=== PATIENT | male | born 1995 | race Caucasian/White ===

== ENCOUNTER 2016-09-15 19:23 | Emergency (ER) | payer OTHER ==
[~2016-09-15] VITALS: Ht 180.3 cm; Wt 113.4 kg
[~2016-09-15 19:23] MED LIST: CEPHALEXIN500 M1 PO; CLARITIN10 MG PO; CYCLOBENZAPRINE10 MG PO; IMODIUM A-D2 M2 PO; MEDROL DOSEPAK4 MG PO; MOTRIN800 MG PO; NAPROSYN500 MG PO; ZOFRAN ODT4 MG SL
[2016-09-15 19:31] VITALS: BP 160/90
[2016-09-15 19:56] LABS: BASO % 0.3 % (0.0-1.0); EOS # 0.3 10*3/uL (0.0-0.4); EOS % 2.8 % (1.0-4.0); HEMATOCRIT 42.6 % (42.0-52.0); HEMOGLOBIN 15.1 g/dl (14.0-18.0); LYMPH # 2.5 10*3/uL (1.3-4.4); MEAN CELL VOLUME 79.3 fl (80.0-94.0); MEAN CORPUSCULAR HGB 28.1 pg (27.0-31.0); MEAN CORPUSCULAR HGB CONC 35.4 g/dl (33.0-37.0); MEAN PLATELET VOLUME 8.7 fl (9.6-12.3); MONO # 0.9 10*3/uL (0.1-1.0); MONO % 9.8 % (3.0-9.0); NEUT # 5.6 10*3/uL (2.3-7.9); NEUT % 59.9 % (47.0-73.0); PLATELET COUNT AUTOMATED 305 10*3/uL (130-400); RED BLOOD COUNT 5.37 10*6/uL (4.50-5.90); RED CELL DISTRI WIDTH 12.7 % (0-14.5); WHITE BLOOD COUNT 9.3 10*3/uL (4.8-10.8)
[2016-09-15 20:12] LABS: ALBUMIN 3.9 gm/dl (3.1-4.5); ALKALINE PHOSPHATASE 105 U/L (45-117); BILIRUBIN, TOTAL 0.4 mg/dl (0.2-1.0); BUN 13 mg/dl (7-24); CARBON DIOXIDE 23 mmol/L (21-32); CHLORIDE 108 mmol/L (98-107); EST GLOM FILT AFRICAN AMERICAN > 60 ml/min; GLUCOSE 109 mg/dL (65-99); POTASSIUM 3.9 mmol/L (3.5-5.1); SGOT/AST 20 IU/L (3-35); SGPT/ALT 33 U/L (12-78); SODIUM 143 mmol/L (136-145); TOTAL PROTEIN 7.6 gm/dL (6.4-8.2)
== END 2016-09-15 20:46 | disposition home or self-care (01) ==
LOC: ED 19:23
PROVIDERS: Physician Assistant
DX: G89.29 Other chronic pain (principal); M54.5 Low back pain; R51 Headache; Z88.8 Allergy status to other drugs, medicaments and biological substances

== ENCOUNTER 2016-11-27 17:18 | Emergency (ER) | payer OTHER ==
[~2016-11-27] VITALS: Ht 182.8 cm; Wt 113.4 kg
[2016-11-27 17:39] VITALS: BP 135/79
[2016-11-27] MEDS ORDERED: Bactrim DS PO (18:00)
[2016-11-27] MEDS ORDERED: KEFLEX500 M1 PO (18:00)
== END 2016-11-27 18:03 | disposition home or self-care (01) ==
LOC: ED 17:18
DX: L03.115 Cellulitis of right lower limb (principal); Z96.643 Presence of artificial hip joint, bilateral; Z88.8 Allergy status to other drugs, medicaments and biological substances

== ENCOUNTER 2016-12-03 19:37 | Inpatient (IN) | payer OTHER ==
[~2016-12-03] VITALS: Ht 182.8 cm; Wt 109.8 kg
[~2016-12-03 19:37] MED LIST changes: +Bactrim DS PO; +KEFLEX500 M1 PO
[2016-12-03 19:58] VITALS: BP 130/76
[2016-12-03] MEDS ORDERED: DOXYCYCLINE100 M3 PO (20:00)
[2016-12-03 20:37] LABS: BASO % 0.5 % (0.0-1.0); EOS # 0.2 10*3/uL (0.0-0.4); EOS % 2.7 % (1.0-4.0); HEMOGLOBIN 13.9 g/dl (14.0-18.0); LYMPH # 2.4 10*3/uL (1.3-4.4); LYMPH % 28.2 % (27.0-41.0); MEAN CELL VOLUME 82.3 fl (80.0-94.0); MEAN CORPUSCULAR HGB 27.9 pg (27.0-31.0); MEAN CORPUSCULAR HGB CONC 33.9 g/dl (33.0-37.0); MEAN PLATELET VOLUME 8.6 fl (9.6-12.3); MONO # 0.6 10*3/uL (0.1-1.0); MONO % 7.4 % (3.0-9.0); NEUT # 5.2 10*3/uL (2.3-7.9); NEUT % 60.8 % (47.0-73.0); PLATELET COUNT AUTOMATED 308 10*3/uL (130-400); RED BLOOD COUNT 4.98 10*6/uL (4.50-5.90); RED CELL DISTRI WIDTH 12.7 % (0-14.5); WHITE BLOOD COUNT 8.6 10*3/uL (4.8-10.8)
[2016-12-03 20:53] LABS: ALBUMIN 3.8 gm/dl (3.1-4.5); ALKALINE PHOSPHATASE 99 U/L (45-117); BUN 12 mg/dl (7-24); CHLORIDE 107 mmol/L (98-107); CREATININE 0.88 mg/dL (0.70-1.30); POTASSIUM 3.9 mmol/L (3.5-5.1); SGOT/AST 16 IU/L (3-35); SGPT/ALT 30 U/L (12-78); SODIUM 138 mmol/L (136-145); TOTAL PROTEIN 7.7 gm/dL (6.4-8.2)
[2016-12-03 21:45] VITALS: BP 134/77; BP 137/77
--- NOTE | 2016-12-03 21:45 | NUR ---
A 21, admitted to 4E, under the services of YVES Zhao DO with a diagnosis of CELLULITIS, FAILED OUTPT TRT. Chief complaint is RASH. Patient arrived via BED from ER. Initial assessment completed. Vital signs taken and recorded. YVES ZHAO DO notified of admission to the unit. Orders received. See assessment for past medical history, medications and allergies. Patient and/or family oriented to unit. visitation policy reviewed. Clothing/patient valuable form completed. CLIFF ENRIQUEZ
--- NOTE | 2016-12-03 22:00 | NUR ---
MED REC UP TO DATE PER PATIENT
[2016-12-04] VITALS: BP 124/59
--- NOTE | 2016-12-04 02:00 | NUR ---
SLEEPING. RESP EASY AND NONLABORED ON ROOM AIR. NO DISTRESS NOTED. CALL LIGHT IN REACH. WILL CONTINUE TO MONITOR.
[2016-12-04 06:59] LABS: BASO % 0.3 % (0.0-1.0); EOS # 0.2 10*3/uL (0.0-0.4); EOS % 3.3 % (1.0-4.0); HEMATOCRIT 39.3 % (42.0-52.0); HEMOGLOBIN 13.2 g/dl (14.0-18.0); LYMPH # 1.8 10*3/uL (1.3-4.4); LYMPH % 31.4 % (27.0-41.0); MEAN CELL VOLUME 82.7 fl (80.0-94.0); MEAN CORPUSCULAR HGB 27.8 pg (27.0-31.0); MEAN CORPUSCULAR HGB CONC 33.6 g/dl (33.0-37.0); MONO # 0.7 10*3/uL (0.1-1.0); MONO % 11.7 % (3.0-9.0); NEUT # 3.1 10*3/uL (2.3-7.9); NEUT % 52.8 % (47.0-73.0); PLATELET COUNT AUTOMATED 272 10*3/uL (130-400); RED BLOOD COUNT 4.75 10*6/uL (4.50-5.90); RED CELL DISTRI WIDTH 12.7 % (0-14.5); WHITE BLOOD COUNT 5.8 10*3/uL (4.8-10.8)
--- NOTE | 2016-12-04 07:11 | NUR ---
DR MALIK'S ANSWERING SERVICE MADE AWARE OF NEW CONSULT.
[2016-12-04 07:25] LABS: BUN 14 mg/dl (7-24); CHLORIDE 109 mmol/L (98-107); CHOLESTEROL 140 mg/dL (<200); CREATININE 0.74 mg/dL (0.70-1.30); POTASSIUM 4.3 mmol/L (3.5-5.1); SODIUM 141 mmol/L (136-145); TRIGLYCERIDES 83 mg/dl (<150); VLDL CHOLESTEROL 17 mg/dL (6-40)
[2016-12-04 07:33] LABS: HDL CHOLESTEROL 28 mg/dl (40-60); LDL CHOLESTEROL 95 mg/dL (9-159)
--- NOTE | 2016-12-04 07:33 | NUR ---
24 HR chart check completed.
[2016-12-04 08:00] VITALS: BP 128/66
[2016-12-04 12:00] VITALS: BP 136/76
--- NOTE | 2016-12-04 15:13 | NUR ---
Floorworker Distributor in to talk to patient. Patient states lives at with . There are few steps in the home. Physician: none Pharmacy: [facility] Home health services: none Patient's level of ADLs: INDEPENDENT Patient has working utilities: all working DME: none Follow-up physician's appointment after d/c: will be made by hospitalist nurse director upon discharge Does patient want to access PORTAL?: no Discharge plan discussed with patient, patient is independent in adls and ambulation, works and drives, patient stated he will return home and denies any home needs. DUSTY RAMOS
[2016-12-04 16:00] VITALS: BP 145/70
[2016-12-04 20:00] VITALS: BP 143/80
--- NOTE | 2016-12-04 20:00 | NUR ---
ASSUMED CARE OF PATIENT. ASSESSMENT COMPLETE. RESTING IN BED WITH NO VOICED COMPLAINTS. VISITORS AT BEDSIDE. CALL LIGHT IN REACH. WILL CONTINUE TO MONITOR.
[2016-12-05] VITALS: BP 132/73
--- NOTE | 2016-12-05 02:00 | NUR ---
SLEEPING. RESP EASY AND NONLABORED ON ROOM AIR. NO DISTRESS NOTED. CALL LIGHT IN REACH. WILL CONTINUE TO MONITOR.
[2016-12-05 08:00] VITALS: BP 134/82
--- NOTE | 2016-12-05 09:00 | NUR ---
case management visits with patient, patient denies any home needs
--- NOTE | 2016-12-05 10:00 | NUR ---
Patient resting quietly with no c/o discomfort. Respirations easy and regular. Vital signs stable. No overt distress. MESFIN PRICE R
[2016-12-05] MEDS ORDERED: DOXYCYCLINE100 M3 PO (12:10)
--- NOTE | 2016-12-05 12:40 | NUR ---
Discharge instructions reviewed with patient/family. Patient receptive and verbalizes understanding. Follow-up care arranged. Written instructions given to patient/family. MESFIN PRICE
[2016-12-07 00:09] LABS: IGG P18 AB Absent (.); IGG P23 AB Absent (.); IGG P28 AB Absent (.); IGG P30 AB Absent (.); IGG P39 AB Absent (.); IGG P41 AB Present (.); IGG P45 AB Absent (.); IGG P58 AB Absent (.); IGG P63 AB Absent (.); IGG P66 AB Absent (.); IGM P23 AB Present (.); IGM P39 AB Absent (.); IGM P41 AB Present (.); LYME IGG WB INTERPRETATION Negative (.); LYME IGM WB INTERPRETATION Positive (.); LYME REFLEX CHARGE YES
== END 2016-12-05 12:40 | disposition home or self-care (01) | DRG 868 ==
LOC: ED 19:37 → EDHOLD 20:30 → 4E 20:30
PROVIDERS: Emergency Medicine Emergency Medical Services; Hospitalist; Internal Medicine; ADMIT Internal Medicine
DX: A69.20 Lyme disease, unspecified (principal); L03.115 Cellulitis of right lower limb; G89.29 Other chronic pain; M54.9 Dorsalgia, unspecified; I10 Essential (primary) hypertension; R73.9 Hyperglycemia, unspecified; Z88.8 Allergy status to other drugs, medicaments and biological substances; Z80.9 Family history of malignant neoplasm, unspecified; Z82.49 Family history of ischemic heart disease and other diseases of the circulatory system; Z78.9 Other specified health status; Z72.0 Tobacco use; Z71.6 Tobacco abuse counseling

== ENCOUNTER 2017-03-17 22:06 | Emergency (ER) | payer OTHER ==
[~2017-03-17] VITALS: Ht 182.8 cm; Wt 113.4 kg
[~2017-03-17 22:06] MED LIST changes: +DOXYCYCLINE100 M3 PO
[2017-03-17 22:13] VITALS: BP 114/64
[2017-03-17 23:10] LABS: BASO % 0.3 % (0.0-1.0); EOS # 0.1 10*3/uL (0.0-0.4); EOS % 0.6 % (1.0-4.0); HEMATOCRIT 44.3 % (42.0-52.0); HEMOGLOBIN 15.6 g/dl (14.0-18.0); LYMPH # 0.5 10*3/uL (1.3-4.4); MEAN CELL VOLUME 80.4 fl (80.0-94.0); MEAN CORPUSCULAR HGB 28.3 pg (27.0-31.0); MEAN CORPUSCULAR HGB CONC 35.2 g/dl (33.0-37.0); MEAN PLATELET VOLUME 8.4 fl (9.6-12.3); MONO # 0.6 10*3/uL (0.1-1.0); MONO % 5.4 % (3.0-9.0); NEUT # 9.3 10*3/uL (2.3-7.9); NEUT % 88.5 % (47.0-73.0); PLATELET COUNT AUTOMATED 245 10*3/uL (130-400); RED BLOOD COUNT 5.51 10*6/uL (4.50-5.90); RED CELL DISTRI WIDTH 12.9 % (0-14.5); WHITE BLOOD COUNT 10.5 10*3/uL (4.8-10.8)
[2017-03-17 23:25] LABS: ALBUMIN 3.9 gm/dl (3.1-4.5); ALKALINE PHOSPHATASE 99 U/L (45-117); BUN 21 mg/dl (7-24); CHLORIDE 105 mmol/L (98-107); CREATININE 0.97 mg/dL (0.70-1.30); POTASSIUM 3.8 mmol/L (3.5-5.1); SGOT/AST 10 IU/L (3-35); SGPT/ALT 30 U/L (12-78); SODIUM 139 mmol/L (136-145); TOTAL PROTEIN 7.7 gm/dL (6.4-8.2)
[2017-03-17 23:48] LABS: BILIRUBIN NEGATIVE (NEGATIVE); BLOOD TRACE-LYSED (NEGATIVE); CLARITY SL CLOUDY (CLEAR); COLOR YELLOW (YELLOW); GLUCOSE NEGATIVE (NEGATIVE); KETONE NEGATIVE (NEGATIVE); LEUKO ESTERASE NEGATIVE (NEGATIVE); NITRITE NEGATIVE (NEGATIVE); PH 5.5 (5.0-9.0); SPECIFIC GRAVITY >= 1.030 (1.005-1.030); UROBILINOGEN 0.2 E.U./dl (0.2-1.0)
[2017-03-17 23:59] LABS: MUCOUS 1+
[2017-03-18 00:03] LABS: BACTERIA TRACE; WBC 0-2 wbc/hpf (0-5)
[2017-03-18] MEDS ORDERED: ZOFRAN4 MG PO (00:48)
== END 2017-03-18 00:54 | disposition home or self-care (01) ==
LOC: ED 22:06
PROVIDERS: Nurse Practitioner
DX: K29.70 Gastritis, unspecified, without bleeding (principal); R11.2 Nausea with vomiting, unspecified; Z88.8 Allergy status to other drugs, medicaments and biological substances; Z79.899 Other long term (current) drug therapy; F10.10 Alcohol abuse, uncomplicated

== ENCOUNTER 2017-10-27 21:09 | Emergency (ER) | payer OTHER ==
[~2017-10-27] VITALS: Ht 182.8 cm; Wt 104.3 kg
[~2017-10-27 21:09] MED LIST changes: +ZOFRAN4 MG PO
[2017-10-27 21:11] VITALS: BP 143/93
[2017-10-27] MEDS ORDERED: ZESTRIL10 MG PO (21:22)
== END 2017-10-27 21:32 | disposition home or self-care (01) ==
LOC: ED 21:09
DX: G43.909 Migraine, unspecified, not intractable, without status migrainosus (principal); I10 Essential (primary) hypertension; F17.200 Nicotine dependence, unspecified, uncomplicated; Z98.890 Other specified postprocedural states; Z88.8 Allergy status to other drugs, medicaments and biological substances

== ENCOUNTER 2018-04-03 18:34 | Emergency (ER) | payer OTHER ==
[~2018-04-03] VITALS: Ht 182.8 cm; Wt 111.1 kg
[~2018-04-03 18:34] MED LIST changes: +ZESTRIL10 MG PO
[2018-04-03 18:35] VITALS: BP 127/80
[2018-04-03 19:56] LABS: BASO % 0.2 % (0.0-1.0); EOS % 0.2 % (1.0-4.0); HEMATOCRIT 39.7 % (42.0-52.0); HEMOGLOBIN 14.1 g/dl (14.0-18.0); LYMPH # 1.3 10*3/uL (1.3-4.4); LYMPH % 8.8 % (27.0-41.0); MEAN CELL VOLUME 81.5 fl (80.0-94.0); MEAN CORPUSCULAR HGB CONC 35.5 g/dl (33.0-37.0); MEAN PLATELET VOLUME 8.5 fl (9.6-12.3); MONO # 1.3 10*3/uL (0.1-1.0); MONO % 8.9 % (3.0-9.0); NEUT # 11.8 10*3/uL (2.3-7.9); NEUT % 81.5 % (47.0-73.0); PLATELET COUNT AUTOMATED 261 10*3/uL (130-400); RED BLOOD COUNT 4.87 10*6/uL (4.50-5.90); RED CELL DISTRI WIDTH 12.6 % (0-14.5); WHITE BLOOD COUNT 14.4 10*3/uL (4.8-10.8)
[2018-04-03 20:13] LABS: ALBUMIN 3.6 gm/dl (3.1-4.5); ALKALINE PHOSPHATASE 79 U/L (45-117); BUN 10 mg/dl (7-24); CHLORIDE 106 mmol/L (98-107); CREATININE 0.85 mg/dL (0.70-1.30); POTASSIUM 3.4 mmol/L (3.5-5.1); SGOT/AST 10 IU/L (3-35); SGPT/ALT 29 U/L (12-78); SODIUM 137 mmol/L (136-145); TOTAL PROTEIN 7.2 gm/dL (6.4-8.2)
[2018-04-03 20:26] LABS: BILIRUBIN NEGATIVE (NEGATIVE); BLOOD TRACE-LYSED (NEGATIVE); CLARITY CLEAR (CLEAR); COLOR YELLOW (YELLOW); GLUCOSE NEGATIVE (NEGATIVE); KETONE NEGATIVE (NEGATIVE); LEUKO ESTERASE NEGATIVE (NEGATIVE); NITRITE NEGATIVE (NEGATIVE); SPECIFIC GRAVITY 1.015 (1.005-1.030); UROBILINOGEN 0.2 E.U./dl (0.2-1.0)
[2018-04-03 20:34] LABS: MUCOUS TRACE
[2018-04-03] MEDS ORDERED: AMOXICILLIN500 M3 PO (21:05)
== END 2018-04-03 21:00 | disposition home or self-care (01) ==
LOC: ED 18:34
PROVIDERS: Nurse Practitioner Family
DX: J03.90 Acute tonsillitis, unspecified (principal); F17.200 Nicotine dependence, unspecified, uncomplicated; Z88.8 Allergy status to other drugs, medicaments and biological substances; Z79.899 Other long term (current) drug therapy; Z79.2 Long term (current) use of antibiotics

== ENCOUNTER 2018-05-31 13:09 | Emergency (ER) | payer OTHER ==
[~2018-05-31] VITALS: Ht 182.8 cm; Wt 108.9 kg
[~2018-05-31 13:09] MED LIST changes: +AMOXICILLIN500 M3 PO
[2018-05-31 13:50] LABS: BASO % 0.3 % (0.0-1.0); EOS # 0.2 10*3/uL (0.0-0.4); EOS % 1.7 % (1.0-4.0); HEMATOCRIT 42.4 % (42.0-52.0); HEMOGLOBIN 15.1 g/dl (14.0-18.0); LYMPH # 1.9 10*3/uL (1.3-4.4); LYMPH % 15.3 % (27.0-41.0); MEAN CELL VOLUME 80.6 fl (80.0-94.0); MEAN CORPUSCULAR HGB 28.7 pg (27.0-31.0); MEAN CORPUSCULAR HGB CONC 35.6 g/dl (33.0-37.0); MEAN PLATELET VOLUME 8.1 fl (9.6-12.3); MONO # 0.6 10*3/uL (0.1-1.0); MONO % 5.3 % (3.0-9.0); NEUT # 9.3 10*3/uL (2.3-7.9); PLATELET COUNT AUTOMATED 304 10*3/uL (130-400); RED BLOOD COUNT 5.26 10*6/uL (4.50-5.90); RED CELL DISTRI WIDTH 12.8 % (0-14.5); WHITE BLOOD COUNT 12.1 10*3/uL (4.8-10.8)
[2018-05-31 14:13] LABS: ALBUMIN 3.4 gm/dl (3.1-4.5); ALKALINE PHOSPHATASE 84 U/L (45-117); BUN 13 mg/dl (7-24); CHLORIDE 107 mmol/L (98-107); CREATININE 0.91 mg/dL (0.70-1.30); LIPASE 97 U/L (73-393); POTASSIUM 3.7 mmol/L (3.5-5.1); SGOT/AST 8 IU/L (3-35); SGPT/ALT 50 U/L (12-78); SODIUM 139 mmol/L (136-145); TOTAL PROTEIN 7.6 gm/dL (6.4-8.2)
[2018-05-31 15:58] VITALS: BP 123/72
[2018-06-25] MEDS ORDERED: NORCO 5-325 TA1 EACH PO (11:29)
== END 2018-05-31 18:02 | disposition home or self-care (01) ==
LOC: ED 13:09
PROVIDERS: Emergency Medicine
DX: K80.50 Calculus of bile duct without cholangitis or cholecystitis without obstruction (principal); I10 Essential (primary) hypertension; G43.909 Migraine, unspecified, not intractable, without status migrainosus; Z88.8 Allergy status to other drugs, medicaments and biological substances

== ENCOUNTER → 2018-06-10 | Outpatient (CLI) | payer OTHER ==
[~2018-06-10] MED LIST changes: +NORCO 5-325 TA1 EACH PO
== END | disposition home or self-care (01) ==
LOC: NM 06:52
DX: R10.11 Right upper quadrant pain (principal); R11.2 Nausea with vomiting, unspecified; R19.7 Diarrhea, unspecified; I10 Essential (primary) hypertension

== ENCOUNTER → 2018-06-25 | Day surgery (SDC) | payer OTHER ==
[2018-06-19 11:00] VITALS: BP 153/89
[2018-06-24 08:45] LABS: BASO % 0.3 % (0.0-1.0); EOS # 0.3 10*3/uL (0.0-0.4); EOS % 4.1 % (1.0-4.0); HEMATOCRIT 44.1 % (42.0-52.0); LYMPH % 30.1 % (27.0-41.0); MEAN CELL VOLUME 81.5 fl (80.0-94.0); MEAN CORPUSCULAR HGB 27.7 pg (27.0-31.0); MEAN PLATELET VOLUME 8.4 fl (9.6-12.3); MONO # 0.5 10*3/uL (0.1-1.0); MONO % 7.8 % (3.0-9.0); NEUT # 3.9 10*3/uL (2.3-7.9); PLATELET COUNT AUTOMATED 294 10*3/uL (130-400); RED BLOOD COUNT 5.41 10*6/uL (4.50-5.90); RED CELL DISTRI WIDTH 12.8 % (0-14.5); WHITE BLOOD COUNT 6.8 10*3/uL (4.8-10.8)
[2018-06-24 09:19] LABS: ACT PARTIAL THROMBO TIME 25.8 SECONDS (20.8-31.5)
[2018-06-24 09:20] LABS: ALBUMIN 3.8 gm/dl (3.1-4.5); ALKALINE PHOSPHATASE 98 U/L (45-117); BILIRUBIN, DIRECT 0.1 mg/dL (0.0-0.2); BUN 16 mg/dl (7-24); CHLORIDE 106 mmol/L (98-107); CREATININE 0.76 mg/dL (0.70-1.30); POTASSIUM 4.1 mmol/L (3.5-5.1); SGOT/AST 28 IU/L (3-35); SGPT/ALT 51 U/L (12-78); SODIUM 137 mmol/L (136-145); TOTAL PROTEIN 8.1 gm/dL (6.4-8.2)
[~2018-06-25] VITALS: Ht 182.8 cm; Wt 113.4 kg
--- NOTE | ~2018-06-25 | O ---
[place], [place] OPERATIVE NOTE NAME: [id number] UNIT #: [id number] ROOM: DOCTOR: MAYNOR MATUTE MD BIRTHDATE: [birth year] DOS: 06/25/2018 PREOPERATIVE DIAGNOSIS: Biliary dyskinesia. POSTOPERATIVE DIAGNOSIS: Biliary dyskinesia. PROCEDURE: Laparoscopic cholecystectomy. SURGEON: Maynor Matute MD CALENDER WORKER HELPER: RACHEL. ANESTHESIA: General with endotracheal intubation. INDICATIONS: This is a 22-year-old gentleman with a history of symptomatic biliary dyskinesia, who is here for the above-mentioned procedure. The procedure and its complications were explained to the patient in detail preoperatively. Complications that were discussed included but were not limited to bleeding, infection, hematoma/seroma/abscess formation, biloma formation, inadvertent injury to common bile duct, incisional hernia formation and prolonged pain. He agreed to proceed. DESCRIPTION OF PROCEDURE: After identifying the patient, the patient was brought to the operating suite and laid in the supine position. After induction of general anesthesia, a timeout procedure was called and the parts were painted and draped in the usual sterile fashion. An incision was made below the umbilicus. The skin and the subcutaneous tissue were incised. The fascia was incised and 2 stay sutures were taken on either side with 0 Vicryl. The peritoneum was opened and a 12 mm Watson port was introduced into the peritoneal cavity. Pneumoperitoneum was created. Under direct vision, an epigastric incision of 10 mm and two 5 mm incisions were made in the right upper quadrant and appropriate size ports were introduced. The gallbladder was retracted superiorly and laterally. The cystic artery and the cystic duct were carefully dissected until the critical view of safety was obtained and the triangle of Calot was identified. Thereafter, each of the structures were cut between the first clip 3 times and cut between the first and second clips. Gallbladder was then removed from the bed of the gallbladder and placed in an EndoCatch bag. It was removed from the peritoneal cavity and sent for histopathological diagnosis. Thereafter, hemostasis was confirmed in the liver bed. The right upper quadrant and the epigastric ports were removed and there was no bleeding seen. The umbilical port was also removed and 2 stay sutures were tied together and an additional 0 Vicryl stitch was taken to close the fascia. Local anesthesia was injected in the skin edges and they were then approximated with the help of 4-0 Vicryl in a subcuticular running fashion. Dressings were placed. The patient tolerated the procedure well. He was extubated uneventfully and brought back to the recovery room in stable fashion. There were no complications. Dr. Maynor Matute, the attending surgeon, was present throughout the operating case. [place], [place] OPERATIVE NOTE NAME: FARIDA CHISHOLM UNIT #: [id number] ROOM: DOCTOR: MAYNOR MATUTE MD BIRTHDATE: [birth year] Maynor Matute MD CM:OPRECORD:OPERATIVE NOTE [id number] MAYNOR MATUTE MD 06/25/18 1121 interface
[2018-06-25 08:29] VITALS: BP 130/78
[2018-06-25 10:41] VITALS: BP 155/94
[2018-06-25 10:56] VITALS: BP 176/104
[2018-06-25 11:11] VITALS: BP 140/95
[2018-06-25 11:26] VITALS: BP 137/90
[2018-06-25 11:41] VITALS: BP 143/78
== END | disposition home or self-care (01) ==
LOC: SDC 06-19 11:00
PROVIDERS: Surgery
DX: K81.1 Chronic cholecystitis (principal); I10 Essential (primary) hypertension; F17.220 Nicotine dependence, chewing tobacco, uncomplicated; Z98.890 Other specified postprocedural states; Z88.8 Allergy status to other drugs, medicaments and biological substances; Z82.49 Family history of ischemic heart disease and other diseases of the circulatory system; E66.09 Other obesity due to excess calories; Z68.33 Body mass index [BMI] 33.0-33.9, adult; Z79.899 Other long term (current) drug therapy; Z79.01 Long term (current) use of anticoagulants

== ENCOUNTER → 2019-08-17 | Outpatient (CLI) | payer OTHER ==
[2019-08-17 06:51] LABS: HEMATOCRIT 46.1 % (42.0-52.0); MEAN CORPUSCULAR HGB 28.1 pg (27.0-31.0); MEAN CORPUSCULAR HGB CONC 34.3 g/dl (33.0-37.0); MEAN PLATELET VOLUME 8.4 fl (9.6-12.3); RED BLOOD COUNT 5.62 10*6/uL (4.50-5.90); RED CELL DISTRI WIDTH 12.9 % (0-14.5); WHITE BLOOD COUNT 9.5 10*3/uL (4.8-10.8)
[2019-08-17 07:21] LABS: ALKALINE PHOSPHATASE 76 U/L (45-117); BUN 18 mg/dl (7-24); CHLORIDE 105 mmol/L (98-107); CHOLESTEROL 176 mg/dL (<200); CREATININE 0.89 mg/dL (0.70-1.30); FREE T4 0.89 ng/dl (0.76-1.46); HDL CHOLESTEROL 36 mg/dl (40-60); LDL CHOLESTEROL 110 mg/dL (9-159); POTASSIUM 3.9 mmol/L (3.5-5.1); SGOT/AST 40 IU/L (3-35); SGPT/ALT 116 U/L (12-78); SODIUM 138 mmol/L (136-145); TOTAL PROTEIN 7.7 gm/dL (6.4-8.2); TRIGLYCERIDES 149 mg/dl (<150); VLDL CHOLESTEROL 30 mg/dL (6-40)
[2019-08-19 00:04] LABS: MERCURY None Detected ug/L (0.0-14.9)
[2019-08-19 14:06] LABS: LEAD BLOOD None Detected ug/dL (0-4)
[2019-08-19 18:09] LABS: ARSENIC (TOTAL), URINE 52 ug/L (0-50)
== END | disposition home or self-care (01) ==
LOC: LAB 06:13
PROVIDERS: Family Medicine
DX: R25.1 Tremor, unspecified (principal); R53.83 Other fatigue; G47.62 Sleep related leg cramps

== ENCOUNTER → 2019-09-24 | Outpatient (CLI) | payer OTHER ==
[2019-09-25 08:08] LABS: HEP B CORE AB, IGM Negative (Negative); HEPATITIS B SURFACE AG Negative (Negative); HEPATITIS C VIRUS ANTIBODY <0.1 s/co (0.0-0.9)
[2019-09-25 17:06] LABS: ANTI-SMOOTH MUSCLE ANTIBODY 10 Units (0-19)
== END | disposition home or self-care (01) ==
LOC: LAB 06:48
PROVIDERS: Family Medicine
DX: R79.89 Other specified abnormal findings of blood chemistry (principal)

== ENCOUNTER → 2019-09-29 | Outpatient (CLI) | payer OTHER | END | disposition home or self-care (01) | LOC: US 08:00 | DX: K76.0 Fatty (change of) liver, not elsewhere classified (principal); R94.5 Abnormal results of liver function studies ==

== ENCOUNTER → 2022-05-10 | Outpatient (CLI) | payer OTHER | END | disposition home or self-care (01) | LOC: US 01:05 | PROVIDERS: ATTEND Urology | DX: N28.89 Other specified disorders of kidney and ureter (principal); N28.1 Cyst of kidney, acquired ==